=== PATIENT | male | born 1995 | race Hispanic/Latino ===

== ENCOUNTER 2018-05-25 16:40 | Emergency (ER) | payer BC ==
[2018-05-25 16:49] VITALS: BP 124/71; PULSE 84; RESP 16; TEMP 99.1; O2SAT 100
--- NOTE | 2018-05-25 17:12 | ED PDOC ---
HPI: General Adult Time Seen by Provider: 05/25/18 17:02 Chief Complaint (Nursing): Abnormal Skin Integrity Chief Complaint (Provider): left chest wall pain History Per: Patient History/Exam Limitations: no limitations Onset/Duration Of Symptoms: Days (2) Current Symptoms Are (Timing): Still Present Additional Complaint(s): 22 year old male presents to the ED for an evaluation of left chest wall pain and redness onset for 2 days. Otherwise, he denies any other injuries, pain or rash anywhere else. Past Medical History Reviewed: Historical Data, Nursing Documentation, Vital Signs Vital Signs: Last Vital Signs Temp 99.1 F 05/25/18 16:47 Pulse 84 05/25/18 16:47 Resp 16 05/25/18 16:47 BP 124/71 05/25/18 16:47 Pulse Ox 100 05/25/18 16:47 - Medical History PMH: No Chronic Diseases - Family History Family History: States: Unknown Family Hx - Home Medications Home Medications: Ambulatory Orders Medication Instructions Recorded Cephalexin [Keflex] 500 mg PO TID #21 capsule 05/25/18 Sulfamethoxazole/Trimethoprim 2 each PO BID #28 tablet 05/25/18 [Bactrim Ds Tablet] - Allergies Allergies/Adverse Reactions: Allergies Allergy/AdvReac Type Severity Reaction Status Date / Time gluten Allergy DIARRHEA Verified 05/25/18 16:47 Review of Systems ROS Statement: Except As Marked, All Systems Reviewed And Found Negative Constitutional: Negative for: Fever, Chills Cardiovascular: Positive for: Other (left chest wall pain ) Skin: Negative for: Rash Physical Exam - Reviewed Nursing Documentation Reviewed: Yes Vital Signs Reviewed: Yes - Physical Exam Appears: Positive for: Well, Non-toxic, No Acute Distress Head Exam: Positive for: ATRAUMATIC, NORMAL INSPECTION, NORMOCEPHALIC Skin: Positive for: Normal Color, Warm, Dry Eye Exam: Positive for: EOMI, Normal appearance, PERRL Neck: Positive for: Normal, Painless ROM, Supple. Negative for: Decreased ROM Cardiovascular/Chest: Positive for: Regular Rate, Rhythm, Other (erythema surrounding nipple area with swelling and tenderness ) Respiratory: Positive for: Normal Breath Sounds. Negative for: Respiratory D istress Gastrointestinal/Abdominal: Positive for: Normal Exam, Soft Back: Positive for: Normal Inspection Extremity: Positive for: Normal ROM Neurological/Psych: Positive for: Awake, Alert, Normal Tone, Oriented (x3) - ECG O2 Sat by Pulse Oximetry: 100 (RA) Pulse Ox Interpretation: Normal - Progress ED Course And Treament: LEFT BREAST: No solid or cystic masses identified. Increased thickness of soft tissue seen in the retroareolar space reported to the right retroareolar space. Further, hyperemic changes are identified on color Doppler ultrasonography in the same distribution compatible with cellulitis or mastitis. Limited gynecomastia not excluded here. None seen at the right. No abscess identified. IMPRESSION: Cellulitis or potential mastitis within gynecomastia limited to the retroareolar space. No abscess left breast. Medical Decision Making Medical Decision Making: Time: 17:07 Plan: Breast Unilateral left [US] Scribe Attestation: Documented by Mathew Abreu, acting as a scribe for Tanisha Pruett PA-C. Provider Scribe Attestation: All medical record entries made by the Scribe were at my direction and personally dictated by me. I have reviewed the chart and agree that the record accurately reflects my personal performance of the history, physical exam, medical decision making, and the department course for this patient. I have also personally directed, reviewed, and agree with the discharge instructions and disposition. Disposition - Clinical Impression Clinical Impression: Cellulitis - Patient ED Disposition Is Patient to be Admitted: No - Disposition Disposition: Routine/Home Disposition Time: 18:01 Condition: FAIR Additional Instructions: RETURN TO ED OR PMD IN 48 HOURS FOR RE-EVALUATION. Prescriptions: Cephalexin [Keflex] 500 mg PO TID #21 capsule Sulfamethoxazole/Trimethoprim [Bactrim Ds Tablet] 2 each PO BID #28 tablet Instructions: Cellulitis and Erysipelas (Skin Infections)
--- NOTE | 2018-05-25 18:02 | US ---
Date of service: 05/25/2018 HISTORY: Reason for exam: Painful left retroareolar space. No personal history of breast cancer. No current complaints. COMPARISON: None available. TECHNIQUE: BREAST UNILATERAL LEFT FINDINGS: LEFT BREAST: No solid or cystic masses identified. Increased thickness of soft tissue seen in the retroareolar space reported to the right retroareolar space. Further, hyperemic changes are identified on color Doppler ultrasonography in the same distribution compatible with cellulitis or mastitis. Limited gynecomastia not excluded here. None seen at the right. No abscess identified. IMPRESSION: Cellulitis or potential mastitis within gynecomastia limited to the retroareolar space. No abscess left breast.
== END 2018-05-25 18:21 | disposition home or self-care (01) ==
LOC: H.ER 16:40
DX: L03.313 Cellulitis of chest wall (principal)